=== PATIENT | male | born 2000 | race African-American/Black ===

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

== ENCOUNTER 2024-08-09 16:23 | Emergency (ER) | payer BC, SELFPAY ==
[2024-08-09] MEDS ORDERED: Tetracaine 0.5% PF 4 ML BOT ONE (16:37)
[2024-08-09] MEDS ORDERED: Fluorescein Opthalmic Strip ONE (16:37)
== END 2024-08-09 16:55 | disposition home or self-care (01) ==
LOC: NAV ERS 16:23
DX: H16.001 Unspecified corneal ulcer, right eye (principal); F17.290 Nicotine dependence, other tobacco product, uncomplicated
CPT/HCPCS: 99282